=== PATIENT | male | born 1945 | race Caucasian/White ===

== ENCOUNTER 2017-11-26 13:33 | Emergency (ER) | payer MEDICARE, OTHER ==
[2017-11-26 13:42] VITALS: BP 100/78
--- NOTE | 2017-11-26 15:35 | ER Document Report ---
ED Extremity Problem, Lower - General Mode of Arrival: Ambulatory Information source: Patient TRAVEL OUTSIDE OF THE [place] IN LAST 30 DAYS: No - HPI Patient complains to provider of: Swelling Location: Foot, Leg Occurred: Other - Dates noticed this morning but it is not improved Where: Public place Onset/Duration: Persistent Quality of pain: Other - Tight Severity: Mild Pain Level: 2 Recent injury: No Associated symptoms: Painful ambulation Exacerbated by: Movement, Walking Relieved by: Nothing - General Chief Complaint: Foot Pain Stated Complaint: SWOLLEN FOOT Time Seen by Provider: 11/26/17 15:21 Notes: 72-year-old man presents to ED for complaint of left foot and leg swelling. He states he noticed it when he got home today. He states it is not improved since 10 AM this morning. He denies any injuries. He states he traveled from [place] to [place] and needed to sleep in the car a couple nights [place]. He states his foot and leg feel tight. (SHADIA MATAMOROS) - Related Data Allergies/Adverse Reactions: Penicillins Allergy (Verified 11/26/17 13:40) Past Medical History - General Information source: Patient - Social History Smoking Status: Never Smoker Cigarette use (# per day): No Chew tobacco use (# tins/day): No Smoking Education Provided: No Frequency of alcohol use: Heavy - 2-3 beer a day Drug Abuse: None Occupation: [employer] Lives with: Spouse/Significant other Family History: Reviewed & Not Pertinent Patient has suicidal ideation: No Patient has homicidal ideation: No - Past Medical History Cardiac Medical History: Reports: None Pulmonary Medical History: Reports: None EENT Medical History: Reports: None Neurological Medical History: Reports: None Endocrine Medical History: Reports: None Renal/ Medical History: Reports: None Malignancy Medical History: Reports None GI Medical History: Reports: None Musculoskeletal Medical History: Reports Hx Musculoskeletal Deformity, Reports Hx Musculoskeletal Trauma Skin Medical History: Reports None Psychiatric Medical History: Reports: None Traumatic Medical History: Reports: Hx Fractures - Left index finger reattached Infectious Medical History: Reports: None Past Surgical History: Reports: Hx Appendectomy, Hx Inguinal Hernia, Hx Orthopedic Surgery - Left index finger reattached and left knee surgery Review of Systems - Review of Systems Constitutional: No symptoms reported EENT: No symptoms reported Cardiovascular: No symptoms reported Respiratory: No symptoms reported Gastrointestinal: No symptoms reported Genitourinary: No symptoms reported Male Genitourinary: No symptoms reported Musculoskeletal: Leg swelling, Ankle swelling Skin: No symptoms reported Hematologic/Lymphatic: No symptoms reported Neurological/Psychological: No symptoms reported -: Yes All other systems reviewed and negative Physical Exam - Vital signs Interpretation: Normal - General General appearance: Appears well, Alert - HEENT Head: Normocephalic, Atraumatic Eyes: Normal Pupils: PERRL - Respiratory Respiratory status: No respiratory distress Chest status: Nontender Breath sounds: Normal Chest palpation: Normal - Cardiovascular Rhythm: Regular Heart sounds: Normal auscultation Murmur: No - Abdominal Inspection: Normal Distension: No distension Bowel sounds: Normal Tenderness: Nontender Organomegaly: No organomegaly - Back Back: Normal, Nontender - Extremities General upper extremity: Normal inspection, Nontender, Normal color, Normal ROM , Normal temperature General lower extremity: Normal color, Normal ROM, Normal temperature, Normal weight bearing. No: Araceli's sign Ankle: Tender, Edema Foot: Tender, Edema, No evidence of FB. No: Abrasion, Deformity, Ecchymosis, Instability, Laceration, Metatarsal compress. pain, Nail injury, Navicular tenderness, Puncture wound, Tender 5th metatarsal, Unable to bear weight - Neurological Neuro grossly intact: Yes Cognition: Normal Orientation: AAOx4 Keegan Coma Scale Eye Opening: Spontaneous Keegan Coma Scale Verbal: Oriented Keegan Coma Scale Motor: Obeys Commands Keegan Coma Scale Total: 15 Speech: Normal Motor strength normal: LUE, RUE, LLE, RLE Sensory: Normal - Psychological Associated symptoms: Normal affect, Normal mood - Skin Skin Temperature: Warm Skin Moisture: Dry Skin Color: Normal - Vital signs Vitals: Temp Pulse Resp BP Pulse Ox 98.6 F 77 14 100/78 100 11/26/17 13:40 11/26/17 13:40 11/26/17 13:40 11/26/17 13:40 11/26/17 13:40 Course - Diagnostic Test Radiology reviewed: Image reviewed, Reports reviewed - Re-evaluation Re-evalutation: 11/27/17 02:41 Results of venous Doppler discussed with patient and patient was treated with Eliquis in the emergency room and discharged home with 3 day supply of Eliquis. Patient was instructed to follow-up with his primary doctor as soon as possible. Patient was also discharged home with a prescription for another 11 days of Eliquis. Patient was given strict instructions concerning treatment for his DVT as well as follow-up and precautions with Eliquis. Patient was discharged home (MILA MATAMOROSLINE) 11/27/17 13:07 I spoke with this patient and gave him 2 more names for follow-up as he was accidentally discharged with the name of a plastic surgeon for follow-up. ( BREN MANRIQUEZ) - Vital Signs Vital signs: Temp Pulse Resp BP Pulse Ox 98.6 F 77 14 100/78 100 11/26/17 13:40 11/26/17 13:40 11/26/17 13:40 11/26/17 13:40 11/26/17 13:40 Discharge - Discharge Clinical Impression: DVT (deep venous thrombosis) Qualifiers: DVT location: lower extremity Affected thrombotic vein of extremity: popliteal Chronicity: acute Laterality: left Qualified Code(s): I82.432 - Acute embolism and thrombosis of left popliteal vein Condition: Stable Disposition: HOME, SELF-CARE Additional Instructions: DVT Outpatient Treatment You have deep venous thrombosis (DVT) in your leg. DVT or phlebitis is blood clots within the large deep veins. This causes redness, warmth, and tenderness of the involved area. This problem is more likely to affect people who smoke, take estrogen, have had recent surgery, have been immobile, have had previous DVT, or who have serious underlying health conditions. Keep your legs elevated. A heating pad, 20 minutes every two hours, can help with leg pain. For now, keep walking to a minimum. Don't do any physical work, lifting, or exercise. If the doctor has recommended medication for you, it 's important that you take it. You will be started on a blood-thinning medication. Follow-up is important. Your medication needs to be monitored. Call or return at once if you cough blood or vomit blood, pass black or bloody stool, or have any other unusual bleeding. DVT can cause serious complications. The clots can damage the valves in the veins, leading to chronic pain and swelling. If a clot breaks loose and floats upstream, it can stick in the lungs. A clot in the lungs, called pulmonary embolism, can be life-threatening. Call the doctor or return if you develop increasing leg pain and swelling, leg discoloration, fever, chest pain, or shortness of breath. Brand Names: [place] * Eliquis; * Eliquis Starter Pack Brand Names: [place] * Eliquis Warning * Do not stop taking this drug without talking to your doctor. Stopping this drug when you are not supposed to may raise the chance of blood clots. This includes stroke in certain people. You may need to stop this drug before certain types of dental or health care. Your doctor will tell you when to start taking it again. Follow what your doctor tells you closely. * People who have any type of spinal or epidural procedure are more likely to have bleeding problems around the spine when already on this drug. This bleeding rarely happens, but can lead to not being able to move body (paralysis ) long-term or paralysis that will not go away. The risk is raised in people who have problems with their spine, a certain type of epidural catheter, or have had spinal surgery. The risk is also raised in people who take any other drugs that may affect how the blood clots like blood-thinner drugs (like warfarin), aspirin, or nonsteroidal anti-inflammatory drugs (NSAIDs). Talk with the doctor. * Tell your doctor you use this drug before you have a spinal or epidural procedure. Call your doctor right away if you have any signs of nerve problems like back pain, numbness or tingling, muscle weakness, paralysis, or loss of bladder or bowel control. * Talk with your doctor if you have recently had or will be having a spinal or epidural procedure. Some time may need to pass between the use of this drug and your procedure. Talk with your doctor. What is this drug used for? * It is used to thin the blood so that clots will not form. * It is used to treat blood clots. What do I need to tell my doctor BEFORE I take this drug? * If you have an allergy to apixaban or any other part of this drug. * If you are allergic to any drugs like this one, any other drugs, foods, or other substances. Tell your doctor about the allergy and what signs you had, like rash; hives; itching; shortness of breath; wheezing; cough; swelling of face, lips, tongue, or throat; or any other signs. * If you have any of these health problems: Active bleeding or liver problems. * If you have had a heart valve replaced. * If you are taking any of these drugs: Carbamazepine, itraconazole, ketoconazole, phenytoin, rifampin, ritonavir, or Maria Fernanda's wort. * If you are breast-feeding or plan to breast-feed. * This is not a list of all drugs or health problems that interact with this drug. * Tell your doctor and pharmacist about all of your drugs (prescription or OTC, natural products, vitamins) and health problems. You must check to make sure that it is safe for you to take this drug with all of your drugs and health problems. Do not start, stop, or change the dose of any drug without checking with your doctor. What are some things I need to know or do while I take this drug? * Tell all of your health care providers that you take this drug. This includes your doctors, nurses, pharmacists, and dentists. This drug may need to be stopped before certain types of surgery as your doctor has told you. If this drug is stopped, your doctor will tell you when to start taking this drug again after your surgery or procedure. * Have blood work checked as you have been told by the doctor. Talk with the doctor. * Do not run out of this drug. * You may bleed more easily. Be careful and avoid injury. Use a soft toothbrush and an electric razor. * Very bad and sometimes deadly bleeding problems have happened with this drug. Talk with the doctor. * If you fall or hurt yourself, or if you hit your head, call your doctor right away. Talk with your doctor even if you feel fine. * Tell your doctor if you are or plan on getting . You will need to talk about the benefits and risks of using this drug while you are . What are some side effects that I need to call my doctor about right away? * WARNING/CAUTION: Even though it may be rare, some people may have very bad and sometimes deadly side effects when taking a drug. Tell your doctor or get medical help right away if you have any of the following signs or symptoms that may be related to a very bad side effect: * Signs of an allergic reaction, like rash; hives; itching; red, swollen, blistered, or peeling skin with or without fever; wheezing; tightness in the chest or throat; trouble breathing, swallowing, or talking; unusual hoarseness; or swelling of the mouth, face, lips, tongue, or throat. * Signs of bleeding like throwing up blood or throw up that looks like coffee grounds; coughing up blood; blood in the urine; black, red, or tarry stools; bleeding from the gums; vaginal bleeding that is not normal; bruises without a reason or that get bigger; or any bleeding that is very bad or that you cannot stop. * Weakness on 1 side of the body, trouble speaking or thinking, change in balance, drooping on one side of the face, or blurred eyesight. * Dizziness or passing out. * Feeling tired or weak. * Feeling confused. * Headache. * Joint pain or swelling. * Chest pain or pressure. * Wheezing. What are some other side effects of this drug? * All drugs may cause side effects. However, many people have no side effects or only have minor side effects. Call your doctor or get medical help if you have any side effects that bother you or do not go away. * These are not all of the side effects that may occur. If you have questions about side effects, call your doctor. Call your doctor for medical advice about side effects. * You may report side effects to your national health agency. How is this drug best taken? * Use this drug as ordered by your doctor. Read all information given to you. Follow all instructions closely. * Take with or without food. * If you have trouble swallowing this drug, it can be crushed and mixed in water, apple juice, or applesauce. If you crush and mix this drug, take it within 4 hours of mixing. * To gain the most benefit, do not miss doses. * Keep taking this drug as you have been told by your doctor or other health care provider, even if you feel well. * Those who have feeding tubes may use this drug. Use as you have been told. Flush the feeding tube after this drug is given. What do I do if I miss a dose? * Take a missed dose as soon as you think about it. * If it is close to the time for your next dose, skip the missed dose and go back to your normal time. * Do not take 2 doses at the same time or extra doses. * If you do not think about the missed dose until the next day, skip the missed dose and go back to your normal time. How do I store and/or throw out this drug? * Store at room temperature. * Store in a dry place. Do not store in a bathroom. * Keep all drugs in a safe place. Keep all drugs out of the reach of children and pets. * Throw away unused or drugs. Do not flush down a toilet or pour down a drain unless you are told to do so. Check with your pharmacist if you have questions about the best way to throw out drugs. There may be drug take-back programs in your area. General drug facts * If your symptoms or health problems do not get better or if they become worse, call your doctor. * Do not share your drugs with others and do not take anyone else's drugs. * Keep a list of all your drugs (prescription, natural products, vitamins, OTC ) with you. Give this list to your doctor. * Talk with the doctor before starting any new drug, including prescription or OTC, natural products, or vitamins. * Some drugs may have another patient information leaflet. If you have any questions about this drug, please talk with your doctor, nurse, pharmacist, or other health care provider. * If you think there has been an overdose, call your poison control center or get medical care right away. Be ready to tell or show what was taken, how much, and when it happened. FOLLOW-UP CARE: If you have been referred to a physician for follow-up care, call the physician s office for an appointment as you were instructed or within the next two days. If you experience worsening or a significant change in your symptoms, notify the physician immediately or return to the Emergency Department at any time for re-evaluation. Prescriptions: Apixaban [Eliquis] 10 mg PO Q12 #18 tablet Apixaban [Eliquis 5 mg Tablet] 5 mg PO Q12 #30 tablet Referrals: ATILIO BRYANT MD [ACTIVE STAFF] - Follow up as needed
--- NOTE | 2017-11-26 18:39 | RADIOLOGY REPORT (SQ) ---
EXAM DESCRIPTION: VENOUS UNILATERAL LOWER COMPLETED DATE/TIME: 11/26/2017 3:30 pm REASON FOR STUDY: Left foot leg swelling long car ride COMPARISON: None. TECHNIQUE: Dynamic and static montes scale and color images acquired of the left leg venous system. Se lected spectral images acquired with additional compression and augmentation maneuvers. The contralat eral common femoral vein and saphenofemoral junction were also imaged. Images stored on PACS. Patient was scanned by both myself as well as the Radiology sonographers LIMITATIONS: None. FINDINGS: LEFT COMMON FEMORAL: Normal compression. No visualized echogenic material on montes scale. No defects on col or images. FEMORAL: Normal compression and augmentation. No visualized echogenic material on montes scale. No defe cts on color images. POPLITEAL: Acute mixed echogenicity but predominantly hypoechoic clot is seen throughout the poplitea l vein. CALF VESSELS: Acute mixed echogenicity but predominantly hypoechoic clot is present in the posterior tibial veins. GSV and SSV: Left greater saphenous vein at the saphenous femoral junction is normal. Straightening of the remainder of the greater saphenous vein. Left lesser saphenous vein at the junction with the popliteal vein is normal ANY DEEP VENOUS INSUFFICIENCY: Not evaluated ANY EVIDENCE OF POPLITEAL CYST: No. OTHER: No other significant finding. RIGHT COMMON FEMORAL VEIN AND SAPHENOFEMORAL JUNCTION: Normal compression. No visualized echogenic material on montes scale. No defects on color images. IMPRESSION: Acute clot in the left popliteal vein extending into the calf veins. COMMENT: Report called to Debbi in the emergency room 1810 hours 11/26/2017 TECHNICAL DOCUMENTATION: JOB ID: [id number] [employer]- All Rights Reserved Reading location - IP/workstation name: [email or web address] OF [email or web address]
[2017-11-29] MEDS ORDERED: ZIPRASIDONE MESYLATE INJ/PF 20 MG SDV IM ONE (01:00)
== END 2017-11-26 19:28 | disposition home or self-care (01) ==
LOC: ER 13:33
DX: I82.432 Acute embolism and thrombosis of left popliteal vein (principal); M79.89 Other specified soft tissue disorders; Z88.0 Allergy status to penicillin
CPT/HCPCS: 93971; 99283